=== PATIENT | male | born 1995 | race Two or more races ===

== ENCOUNTER 2022-05-06 15:20 | Emergency (ER) | payer OTHER ==
[~2022-05-06] VITALS: Ht 182.9 cm; Wt 90.7 kg
[~2022-05-06 15:20] MED LIST: ALLEGRA-D1 TAB.SR . PO
== END 2022-05-06 20:43 | disposition home or self-care (01) ==
LOC: ER 15:20
DX: R11.10 Vomiting, unspecified (principal)

== ENCOUNTER 2022-05-07 18:00 | Inpatient (IN) | payer OTHER ==
[~2022-05-07] VITALS: Ht 180.3 cm; Wt 90.7 kg
--- NOTE | 2022-05-07 18:33 | NUR ---
SE RECIBE PTE ALERTA Y ORIENTADO X3 EL CUAL REFIERE CALLY VENIDO A ER DOMENICO POR DOLOR ABDOMINAL Y HOY CONTINUA CON DOLOR. PTE REFIERE NAUSEAS Y VOMITOS.SE MIDEN S/V A PTE Y SE COLOCA EN PHILOMENA.
--- NOTE | 2022-05-07 20:26 | NUR ---
PTE EVALUADO POR . SE ORIENTA SOBRE ORDENES DE TX REFIERE COMPRENDER. SE COLECTAN MUESTRAS DE LABORATORIOS Y SE CANALIZA VENA BAJO MEDIDAS ASEPTICAS. SE ADMINISTRAN MEDICAMENTOS, BAJO MEDIDAS ASEPTICAS.
--- NOTE | 2022-05-08 07:11 | NUR ---
SE RECIBE PACIENTE DE TURNO ANTERIOR ALERTA Y ORIENTADO EN PHILOMENA CON BARANDAS ELEVADAS POR SEGURIDAD. PTE CON VENOPUNCION PATENTE Y STORMY DE EDEMA BAJANDO 0.9NSS @200ML/HR. PTE CONSULTADO CON EL .
--- NOTE | 2022-05-08 09:24 | NUR ---
PTE. CONTINIUA CON VOMITOS Y DOLOR. DR. FRANCIS RE-EVALUA PTE. SE ORIENTA SOBRE TRATAMIENTO Y MEDICAMENTOS LOS CUALES SE ADM. [facility]OL[facility]DEN MEDICA.
--- NOTE | 2022-05-08 15:32 | NUR ---
SE RECIBE PTE MASCULINO ALERTA Y ORIENTADO EN LAS PAT ESFERAS DEL TURNO ANTERIOR. SE OBSERVA CON BUEN PATRON RESPIRATORIO Y SIN QUEJA DE DOLOR AL MOMENTO. VENOPUNCION PATENTE, STORMY DE EDEMA Y ERITEMA RECIBIENDO TERAPIA DE IVFS 0.9NSS BAJANDO A 150ML/HR. PTE EN ESPERA DE CONSULTA CON MEDICINA INTERNA YA NOTIFICADA.
== END 2022-05-13 17:08 | disposition home or self-care (01) | DRG 684 ==
LOC: ER 18:00 → MEDI 05-08 18:20
PROVIDERS: ADMIT Internal Medicine; ATTEND Internal Medicine
PROC: BW21Y0Z Computerized Tomography (CT Scan) of Abdomen and Pelvis using Other Contrast, Unenhanced and Enhanced (ICD-10-PCS; principal; 2022-05-07)
PROC: BT43ZZZ Ultrasonography of Bilateral Kidneys (ICD-10-PCS; 2022-05-08)
PROC: CF1C1ZZ Planar Nuclear Medicine Imaging of Hepatobiliary System, All using Technetium 99m (Tc-99m) (ICD-10-PCS; 2022-05-09)
PROC: BW40ZZZ Ultrasonography of Abdomen (ICD-10-PCS; 2022-05-09)
DX: N17.8 Other acute kidney failure (principal); K29.60 Other gastritis without bleeding; E86.0 Dehydration; R10.13 Epigastric pain; K44.9 Diaphragmatic hernia without obstruction or gangrene; F12.20 Cannabis dependence, uncomplicated; Z20.822 Contact with and (suspected) exposure to COVID-19

== ENCOUNTER 2022-05-18 16:05 | Inpatient (IN) | payer OTHER ==
--- NOTE | 2022-05-18 16:44 | NUR ---
PATIENT IS RECIEVED SAYING THAT HE HAS BEEN DIARRHEA FOR THREE DAYS NOW AND WAS RECENTLY DIAGNOSED WITH RENAL FAILLURE AFTER BEING HOSPITALIZED.
--- NOTE | 2022-05-18 20:28 | NUR ---
PACIENTE EVALUADO POR LA QUIEN ORDENA TRATAMIENTO.SE REALIZAN MUESTRAS Y SE ADMINISTRAN MEDICAMENTOS [facility]DEN MEDICA.
--- NOTE | 2022-05-18 23:42 | NUR ---
PTE ALERTA Y ORIENTADO X3 EN PHILOMENA CON BARANDAS ELEVADAS. PTE CANALIZADO AREA STORMY DE EDEMA Y DE ENROJECIMIENTO. SE ADMNISTRA MEDICAMENTO [facility]OL[facility]DEN MEDICA Y SE EDUCA SOBRE TRATAMIENTO MEDICO.
== END 2022-05-22 17:48 | disposition home or self-care (01) | DRG 371 ==
LOC: ER 16:05 → SEC-K 05-19 21:09 → SURG 05-19 21:09
PROVIDERS: ADMIT Internal Medicine; ATTEND Internal Medicine
PROC: BW21ZZZ Computerized Tomography (CT Scan) of Abdomen and Pelvis (ICD-10-PCS; principal; 2022-05-19)
DX: A04.72 Enterocolitis due to Clostridium difficile, not specified as recurrent (principal); A41.9 Sepsis, unspecified organism; N17.8 Other acute kidney failure; E86.0 Dehydration; F12.20 Cannabis dependence, uncomplicated